=== PATIENT | male | born 1950 | race Caucasian/White ===

== ENCOUNTER 2017-07-21 22:30 | Emergency (ER) | payer OTHER ==
[~2017-07-21] VITALS: Ht 180.3 cm; Wt 88.0 kg
[~2017-07-21 22:30] MED LIST: ASPI-481 PO; CELE100C85 PO; HTN MED PO; HYDR-1666 PO; OMEP40CA3 PO; SIMVASTATIN PO
[2017-07-21 22:31] VITALS: Ht 180.3 cm; Wt 88.0 kg
[2017-07-21] MEDS ORDERED: SOD CHLORIDE 0.9% 500 ML IV STA (22:47)
--- NOTE | 2017-07-21 22:52 | ERD ---
ER Documentation Chief Complaint Date/Time DATE: 07/21/17 TIME: 22:49 Chief Complaint LLQ abd pain since this morning HPI Patient is a 67-year-old male who presents with gradual onset, intermittent, moderate left lower quadrant pain since this morning. He states that the pain is now been constant for the last 3 hours. He states that the pain began as a lower abdominal poorly localized pain, but over time is localized to the left lower quadrant. He denies pain in the testicle. He denies dysuria or hematuria. He denies vomiting or fever. He reports having 3 episodes of diarrhea that progressively more liquid and were brown to lemons in color. He denies bloody stool. He denies recent travel or sick contacts. ROS All systems reviewed and are negative except as per history of present illness. Medications Home Meds Active Scripts Hydrocodone Bit-Acetaminophen* (Vicodin*) 5-300 Tab, 1 TAB PO Q4H Y for PAIN, # 20 TAB Prov:RUBÉN MICHEL MD 07/22/17 Metronidazole* (Flagyl*) 500 Mg Tablet, 500 MG PO TID for 14 Days, TAB Prov:RUBÉN MICHEL MD 07/22/17 Ciprofloxacin Hcl* (Ciprofloxacin Hcl*) 500 Mg Tablet, 500 MG PO BID for 14 Days , TAB Prov:RUBÉN MICHEL MD 07/22/17 Reported Medications Hydrocodone Bit/Acetaminophen (Vicodin 5/500 Tablet) 1 Tab Tablet, 1 TAB PO DAILY Y 06/09/12 Aspirin (Baby Aspirin) 81 Mg Tab.chew, 81 MG PO DAILY 06/09/12 Celecoxib* (Celebrex*) 100 Mg Capsule, 100 MG PO AM 06/09/12 [Simvastatin] No Conflict Check, PO HS 06/09/12 [Htn Med] No Conflict Check, 5 MG PO HS 06/09/12 Omeprazole* (Prilosec*) 40 Mg Capsule.dr, 40 MG PO HS 06/09/12 Allergies Allergies: Coded Allergies: No Known Drug Allergies (Verified Allergy, Unknown, 07/22/17) PMhx/Soc Past medical history: Hypertension, hyperlipidemia, anxiety, GERD, Congenital heart murmur, TIA Past surgical history: Left hip replacement Social history: Occasional alcohol, denies tobacco History of Surgery: Yes ('99 FX HIP SX,19 YRS OLD HEART CATH) Anesthesia Reaction: No Hx Neurological Disorder: No Hx Respiratory Disorders: Yes (2 SPONTANEOUS PNEUMOTHORAX WHEN 19 YRS OLD, 21 YRS OLD) Hx Cardiac Disorders: Yes (HTN 2 YRS ) Hx Psychiatric Problems: No Hx Miscellaneous Medical Probl: No Hx Alcohol Use: Yes (OCCASIONAL, COUPLE TIMES/MONTH) Hx Substance Use: No Hx Tobacco Use: No (40 YRS LAST SMOKED) FmHx Family History: No coronary disease, No diabetes Physical Exam Vitals Vital Signs Date Time Temp Pulse Resp B/P Pulse Ox O2 Delivery O2 Flow Rate FiO2 07/22/17 01:27 98.1 81 20 131/78 98 Room Air 07/21/17 22:31 97.7 88 20 128/61 96 Physical Exam Const: Alert, no acute distress Head: Atraumatic Eyes: Normal Conjunctiva, No pallor, no icterus ENT: Normal External Ears, Nose and Mouth.Moist mucous membranes Neck: Full range of motion..~ No meningismus. Resp: Clear to auscultation bilaterally, No wheezes, no rales Cardio: Regular rate and rhythm, no murmurs Abd: Soft, Nondistended. Palpation of suprapubic and left upper quadrant areas causes referred pain to the left lower quadrant. There is equivocal rebound in the left lower quadrant. There is exquisite tenderness to the inguinal area. There are no skin lesions or erythema. There is no tenderness or mass to the left testicle. There is no palpable hernia. There is no CVA tenderness. Skin: No petechiae or rashes Back: No midline or flank tenderness Ext: No cyanosis, or edema Neur: Awake and alert, Cranial nerves II through XII intact bilaterally, strength and sensation full in 4 extremities. Psych: Normal Mood and Affect Result Diagram: 07/21/17225107/21/172251 Results 24 hrs Laboratory Tests Test 07/21/17 22:52 07/21/17 23:07 White Blood Count 11.110^3/ul Red Blood Count 4.2710^6/ul Hemoglobin 12.7g/dl Hematocrit 38.4% Mean Corpuscular Volume 89.9fl Mean Corpuscular Hemoglobin 29.7pg Mean Corpuscular Hemoglobin Concent 33.1g/dl Red Cell Distribution Width 12.2% Platelet Count 69208^3/UL Mean Platelet Volume 10.5fl Neutrophils % 69.8% Lymphocytes % 18.3% Monocytes % 8.9% Eosinophils % 2.1% Basophils % 0.5% Nucleated Red Blood Cells % 0.0/100WBC Neutrophils # 7.710^3/ul Lymphocytes # 2.010^3/ul Monocytes # 1.010^3/ul Eosinophils # 0.210^3/ul Basophils # 0.110^3/ul Nucleated Red Blood Cells # 0.010^3/ul Prothrombin Time 12.7Sec Prothrombin Time Ratio 1.0 INR International Normalized Ratio 0.95 Urine Color YELLOW Urine Clarity CLEAR Urine pH 6.0 Urine Specific [place] 1.028 Urine Ketones TRACEmg/dL Urine Nitrite NEGATIVEmg/dL Urine Bilirubin NEGATIVEmg/dL Urine Urobilinogen 2+mg/dL Urine Leukocyte Esterase NEGATIVELeu/ul Urine Hemoglobin NEGATIVEmg/dL Urine Glucose NEGATIVEmg/dL Urine Total Protein NEGATIVEmg/dl Sodium Level 141mmol/L Potassium Level 4.7mmol/L Chloride Level 107mmol/L Carbon Dioxide Level 27mmol/L Anion Gap 12 Blood Urea Nitrogen 27mg/dl Creatinine 1.58mg/dl Glucose Level 113mg/dl Calcium Level 8.4mg/dl Total Bilirubin 0.5mg/dl Direct Bilirubin 0.00mg/dl Indirect Bilirubin 0.5mg/dl Aspartate Amino Transf (AST/SGOT) 26IU/L Alanine Aminotransferase (ALT/SGPT) 41IU/L Alkaline Phosphatase 107IU/L Total Protein 7.1g/dl Albumin 4.0g/dl Globulin 3.10g/dl Albumin/Globulin Ratio 1.29 Bedside Urine pH (LAB) 6.5 Bedside Urine Protein (LAB) 1+ Bedside Urine Glucose (UA) Negative Bedside Urine Ketones (LAB) Trace Bedside Urine Blood Negative Bedside Urine Nitrite (LAB) Negative Bedside Urine Leukocyte Esterase (L Negative Current Medications Medications (Trade) Dose Ordered Sig/Edith Route PRN Reason Start Time Stop Time Status Last Admin Dose Admin Sodium Chloride (NS) 500 ml @ 500 mls/hr Q1H STAT IV 07/21/17 22:47 07/21/17 23:46 DC 07/21/17 22:58 Morphine Sulfate (morphine) 4 mg ONCE STAT IV 07/21/17 23:23 07/21/17 23:24 DC 07/21/17 23:29 Ciprofloxacin (Cipro) 500 mg ONCE ONCE PO 07/22/17 01:00 07/22/17 01:04 DC 07/22/17 01:25 Metronidazole (Flagyl) 500 mg ONCE ONCE PO 07/22/17 01:00 07/22/17 01:04 DC 07/22/17 01:25 Procedures/MDM MDM: Patient is a 67-year-old male who presents with acute left-sided abdominal pain for 1 day. He has no fever, but has mild leukocytosis and has tenderness on exam. A CT scan shows a focal area of inflammation and multiple diverticuli , suggestive of diverticulitis. There is no evidence of perforation or abscess. He has no features to suggest ischemic colitis. He has no nausea and is tolerating oral intake. I will treat him with a two-week course of ciprofloxacin and Flagyl, and have advised him on the need for close follow-up with his PMD and return precautions. I also notified him that he will need to discuss his CT findings with his physician and consider whether to have colonoscopy scheduled as an outpatient. He reports his last colonoscopy was 5 years ago. Additional findings on CT include a fat-containing left inguinal hernia, but no incarcerated hernia. He also has incidental finding of left intrarenal stone and cholelithiasis. He does not have symptoms related to these findings. The patient reports mild to moderate response to morphine and prior positive response to Vicodin. I will discharge him with a prescription for Vicodin for pain. Departure Diagnosis: Primary Impression: Diverticulitis Diverticulitis site: large intestine Diverticulitis bleeding: without bleeding Diverticulitis complication: without perforation or abscess Qualified Code: K57.32 - Diverticulitis of large intestine without perforation or abscess without bleeding Additional Impressions: Inguinal hernia of left side without obstruction or gangrene Cholelithiasis Cholelithiasis location: gallbladder Cholecystitis presence: without cholecystitis Biliary obstruction: without biliary obstruction Qualified Code : K80.20 - Calculus of gallbladder without cholecystitis without obstruction Condition: RUBÉN Wade MD Jul 21, 2017 22:52
[2017-07-21 23:00] LABS: URINE BLOOD (Dip) POC Negative (NEGATIVE)
[2017-07-21 23:14] LABS: BASOPHIL # 0.1 10^3/ul (0.0-0.1); BASOPHILS % 0.5 % (0.0-2.0); EOSINOPHILS # 0.2 10^3/ul (0.0-0.5); EOSINOPHILS % 2.1 % (0.0-7.0); HEMATOCRIT 38.4 % (42.0-52.0); HEMOGLOBIN 12.7 g/dl (14.0-18.0); LYMPHOCYTES % 18.3 % (15.0-51.0); MEAN CORPUSCULAR HEMOGLOBIN 29.7 pg (29.0-33.0); MEAN CORPUSCULAR HGB CONC 33.1 g/dl (32.0-37.0); MEAN CORPUSCULAR VOLUME 89.9 fl (82.0-101.0); MEAN PLATELET VOLUME 10.5 fl (7.4-10.4); MONOCYTES % 8.9 % (0.0-11.0); NEUTROPHIL # 7.7 10^3/ul (1.6-7.5); NEUTROPHILS % 69.8 % (39.0-77.0); PLATELET COUNT 181 10^3/UL (140-415); RED BLOOD COUNT 4.27 10^6/ul (4.70-6.10); RED CELL DISTRIBUTION WIDTH 12.2 % (11.5-14.5); WHITE BLOOD COUNT 11.1 10^3/ul (4.8-10.8)
[2017-07-21 23:18] LABS: ADD UMIC NO; UR ASCORBIC ACID 40 mg/dL (NEGATIVE); UR BILIRUBIN (Dip) NEGATIVE (NEGATIVE); UR BLOOD (Dip) NEGATIVE (NEGATIVE); UR CLARITY CLEAR (CLEAR); UR COLOR YELLOW (YELLOW); UR GLUCOSE (Dip) NEGATIVE (NEGATIVE); UR KETONES (Dip) TRACE mg/dL (NEGATIVE); UR LEUKOCYTE ESTERASE (Dip) NEGATIVE Leu/ul (NEGATIVE); UR NITRITE (Dip) NEGATIVE (NEGATIVE); UR SPECIFIC GRAVITY (Dip) 1.028 (1.003-1.030); UR TOTAL PROTEIN (Dip) NEGATIVE (NEGATIVE); UR UROBILINOGEN (Dip) 2+ mg/dL (NEGATIVE)
[2017-07-21 23:22] LABS: INR 0.95; PROTIME 12.7 Sec (12.2-14.2)
[2017-07-21 23:23] LABS: ALBUMIN/GLOBULIN RATIO 1.29; BILIRUBIN,INDIRECT 0.5 mg/dl (0-1.1); BILIRUBIN,TOTAL 0.5 mg/dl (0.2-1.3); CALCIUM 8.4 mg/dl (8.4-10.2); CREATININE 1.58 mg/dl (0.61-1.24); POTASSIUM 4.7 mmol/L (3.5-5.1); TOTAL PROTEIN 7.1 g/dl (6.1-8.1)
[2017-07-21] MEDS ORDERED: morphine 4 MG/ML VIAL IV STA (23:23)
--- NOTE | 2017-07-22 00:42 | RADRPT ---
PROCEDURE: CT ABDOMEN/PELVIS WITHOUT CONTRAST CLINICAL INDICATION: 67-year-old male with abdominal pain. TECHNIQUE: The study was performed utilizing a [employer] VCT 64-slice CT scanner. Direct axia l sections were obtained through the abdomen and pelvis without the use of intravenous contrast mate rial. Sagittal and coronal reformations were obtained. One or more of the following dose reduction t echniques were utilized: automated exposure control, adjustment of the mA and/or kV according to pat ient's size or use of iterative reconstruction technique. The images were reviewed on a PACS workst [employer]. CTD/vol = 13.9 mGy; Total Exam DLP = 867.7 mGy-cm. COMPARISON: None. FINDINGS: There is minimal right basilar subsegmental atelectasis. There is no evidence for significant pleur al effusion. The liver has a normal size and contour without focal areas of abnormal density. No in trahepatic nor extrahepatic biliary ductal dilatation is seen. The gallbladder contains small calcif ied stones the gallbladder neck region without significant wall thickening or pericholecystic fluid. The pancreas is without areas of abnormal attenuation. The spleen is identified and has a normal s ize without abnormal density. The adrenal glands are unremarkable. The right kidney is without abnor mal density, calculi or obstruction. There are several small left peripelvic renal cysts. There is a punctate nonobstructing mid left renal calculus. There is no evidence for hydroureteronephrosis. Th e urinary bladder contains urine. There is mild retained stool identified within the colon. Multiple diverticula seen scattered throughout the colon. There is mild focal thickening of the proximal sigmoid colon with mild surrounding inflammatory changes. Note that there is no definite diverticula within this region. There is no evidence for bowel obstruction. The appendix is visualized and is w ithout abnormal thickening or surrounding inflammatory reaction. There is no significant free fluid. The prostate is mildly prominent with small calcifications within it. The aortoiliac vessels are mi ldly calcified but without aneurysmal dilatation. There is a [id number] left inguinal hernia c ontaining fat. Degenerative changes are present throughout the spine most prominently at L4-5. There is a left hip arthroplasty present. IMPRESSION: 1. Diffuse colonic diverticulosis with mild focal thickening within the proximal sigmoid colon with surrounding inflammatory changes without definite diverticula within this region. This may represen t diverticulitis or epiploic appendagitis however an underlying mass cannot be totally excluded. 2. Cholelithiasis. 3. Punctate nonobstructing mid left renal calculus. 4. No CT evidence for appendicitis. 5. Mildly prominent prostate with calcifications. 6. Qjjg-ns-udtvaqdn left inguinal hernia containing fat. 7. Vascular calcifications. 8. Degenerative changes within the spine. 9. Left hip arthroplasty. .Devin Morrison MD, MD Date Time Electronically viewed and signed by .Devin Morrison MD, on 07/22/2017 00:42 .M/
[2017-07-22] MEDS ORDERED: metroNIDAZOLE 500 MG TAB PO ONE (01:00)
[2017-07-22] MEDS ORDERED: CIPROFLOXACIN 500 MG TAB PO ONE (01:00)
[2017-07-22 01:27] VITALS: BP 131/78; PULSE 81; RESP 20; TEMP 98.1
[2017-07-22] MEDS ORDERED: METR500T PO (01:38)
[2017-07-22] MEDS ORDERED: CIPR500T4 PO (01:38)
[2017-07-22] MEDS ORDERED: HYDR-2086 PO (01:38)
== END 2017-07-22 01:52 | disposition home or self-care (01) ==
LOC: E/R 22:30
DX: K57.32 Diverticulitis of large intestine without perforation or abscess without bleeding (principal); K40.90 Unilateral inguinal hernia, without obstruction or gangrene, not specified as recurrent; K80.20 Calculus of gallbladder without cholecystitis without obstruction; I10 Essential (primary) hypertension; Z79.82 Long term (current) use of aspirin; Z96.642 Presence of left artificial hip joint; Z87.891 Personal history of nicotine dependence
CPT/HCPCS: 36415; 74176; 80053; 81003; 85025; 85610; 96374; 99285; J2270; J7040

== ENCOUNTER 2017-09-07 10:33 | Emergency (ER) | payer OTHER ==
[~2017-09-07] VITALS: Ht 180.3 cm; Wt 81.8 kg
[~2017-09-07 10:33] MED LIST changes: +CIPR500T4 PO; +HYDR-2086 PO; +METR500T PO
[2017-09-07 10:35] VITALS: Ht 180.3 cm; Wt 81.8 kg
--- NOTE | 2017-09-07 11:10 | ERD ---
ER Documentation Chief Complaint Chief Complaint "i couldn't write" an hour ago, hands shaking more than usual. no neuro def HPI 67-year-old male, [id number] with history of hypertension, anxiety, hyperlipidemia, TIA in February 2017, tremors, diverticulitis and cholelithiasis pending elective cholecystectomy on 09/12 presents to the emergency department complaining of worsening tremors since this morning with inability to write that started approximately 10 AM. Symptoms are improving but still having difficulty writing. No headache, visual changes or any other focal weakness or numbness. No other neurologic symptoms. Denies chest pain, palpitations or shortness of breath. Abdominal pain, nausea, vomiting, diarrhea or constipation. Denies neck or back pain. No URI symptoms or cough. Fevers or chills. ROS All systems reviewed and are negative except as per history of present illness. Medications Home Meds Reported Medications Multivitamins* (Theragran*) 1 Tab Tab, 1 TAB PO DAILY, TAB 09/07/17 Aspirin* (Aspirin* Chew) 81 Mg Tab.chew, 81 MG PO DAILY, TAB.CHEW 09/07/17 Sertraline Hcl* (Sertraline Hcl*) 50 Mg Tablet, 50 MG PO DAILY, #30 TAB 09/07/17 Tadalafil (Cialis) 5 Mg Tablet, 5 MG PO DAILY Y for sexul activity, TAB 09/07/17 Bupropion Hcl* (Bupropion Hcl SR*) 150 Mg Tablet.er, 150 MG PO BID, TAB.SA 09/07/17 Simvastatin* (Zocor*) 10 Mg Tablet, 10 MG PO QHS, #30 TAB 09/07/17 Omeprazole* (Omeprazole*) 20 Mg Capsule.dr, 20 MG PO DAILY, #30 CAP 09/07/17 Olmesartan Medoxomil (Benicar) 5 Mg Tablet, 10 MG PO DAILY, #60 TAB 09/07/17 Discontinued Reported Medications Hydrocodone Bit/Acetaminophen (Vicodin 5/500 Tablet) 1 Tab Tablet, 1 TAB PO DAILY Y 06/09/12 Aspirin (Baby Aspirin) 81 Mg Tab.chew, 81 MG PO DAILY 06/09/12 Celecoxib* (Celebrex*) 100 Mg Capsule, 100 MG PO AM 06/09/12 [Simvastatin] No Conflict Check, PO HS 06/09/12 [Htn Med] No Conflict Check, 5 MG PO HS 06/09/12 Omeprazole* (Prilosec*) 40 Mg Capsule.dr, 40 MG PO HS 06/09/12 Discontinued Scripts Hydrocodone Bit-Acetaminophen* (Vicodin*) 5-300 Tab, 1 TAB PO Q4H Y for PAIN, # 20 TAB Prov:RUBÉN MICHEL MD 07/22/17 Metronidazole* (Flagyl*) 500 Mg Tablet, 500 MG PO TID for 14 Days, TAB Prov:RUBÉN MICHEL MD 07/22/17 Ciprofloxacin Hcl* (Ciprofloxacin Hcl*) 500 Mg Tablet, 500 MG PO BID for 14 Days , TAB Prov:RUBÉN MICHEL MD 07/22/17 Allergies Allergies: Coded Allergies: No Known Drug Allergies (Verified Allergy, Unknown, 07/22/17) PMhx/Soc Reviewed in chart. As per HPI. Anesthesia Reaction: No Hx Respiratory Disorders: Yes (2 SPONTANEOUS PNEUMOTHORAX WHEN 19 YRS OLD, 21 YRS OLD) Hx Psychiatric Problems: No Hx Alcohol Use: Yes Hx Substance Use: No Hx Tobacco Use: No FmHx No coronary artery disease or diabetes. Physical Exam Vitals Vital Signs Date Time Temp Pulse Resp B/P Pulse Ox O2 Delivery O2 Flow Rate FiO2 09/07/17 15:14 98.1 68 18 141/90 100 Room Air 09/07/17 11:23 98.1 71 14 157/92 99 Room Air 09/07/17 10:35 98.1 83 18 107/67 100 Physical Exam Const: Alert, anxious, moderate distress. Head: Atraumatic Eyes: Normal Conjunctiva ENT: Normal External Ears, Nose and Mouth. Neck: Full range of motion..~ No meningismus. Resp: Clear to auscultation bilaterally Cardio: Regular rate and rhythm, no murmurs Abd: Soft, non tender, non distended. Normal bowel sounds Skin: No petechiae or rashes Back: No midline or flank tenderness Ext: No cyanosis, or edema Neur: Awake and alert. CN II-XII are grossly intact. Motor strenght 5/5 in all extremities. Normal gait. Negative Romberg. No dysdiadochokinesis. Resting tremors both hands. Psych: Cooperative. Anxious but not depressed. Result Diagram: 09/07/17 1130 09/07/17 1130 Results 24 hrs Laboratory Tests Test 09/07/17 11:30 09/07/17 12:15 White Blood Count 7.610^3/ul Red Blood Count 4.4210^6/ul Hemoglobin 13.1g/dl Hematocrit 39.2% Mean Corpuscular Volume 88.7fl Mean Corpuscular Hemoglobin 29.6pg Mean Corpuscular Hemoglobin Concent 33.4g/dl Red Cell Distribution Width 11.9% Platelet Count 56246^3/UL Mean Platelet Volume 10.4fl Neutrophils % 74.4% Lymphocytes % 16.5% Monocytes % 6.5% Eosinophils % 1.8% Basophils % 0.4% Nucleated Red Blood Cells % 0.0/100WBC Neutrophils # 5.710^3/ul Lymphocytes # 1.310^3/ul Monocytes # 0.510^3/ul Eosinophils # 0.110^3/ul Basophils # 0.010^3/ul Nucleated Red Blood Cells # 0.010^3/ul Prothrombin Time 13.7Sec Prothrombin Time Ratio 1.1 INR International Normalized Ratio 1.05 Activated Partial Thromboplast Time 28.8Sec Sodium Level 139mmol/L Potassium Level 4.5mmol/L Chloride Level 103mmol/L Carbon Dioxide Level 25mmol/L Anion Gap 16 Blood Urea Nitrogen 27mg/dl Creatinine 1.74mg/dl Glucose Level 113mg/dl Calcium Level 9.0mg/dl Total Bilirubin 1.1mg/dl Direct Bilirubin 0.00mg/dl Indirect Bilirubin 1.1mg/dl Aspartate Amino Transf (AST/SGOT) 26IU/L Alanine Aminotransferase (ALT/SGPT) 44IU/L Alkaline Phosphatase 90IU/L Troponin I < 0.012ng/ml Total Protein 7.1g/dl Albumin 4.2g/dl Globulin 2.90g/dl Albumin/Globulin Ratio 1.44 Urine Color YELLOW Urine Clarity CLEAR Urine pH 6.0 Urine Specific [place] 1.018 Urine Ketones TRACEmg/dL Urine Nitrite NEGATIVEmg/dL Urine Bilirubin NEGATIVEmg/dL Urine Urobilinogen NEGATIVEmg/dL Urine Leukocyte Esterase NEGATIVELeu/ul Urine Hemoglobin NEGATIVEmg/dL Urine Glucose NEGATIVEmg/dL Urine Total Protein NEGATIVEmg/dl Urine Opiates Screen Negative Urine Barbiturates Negative Urine Amphetamines Screen Negative Urine Benzodiazepines Screen Negative Urine Cocaine Screen Negative Urine Cannabinoids Negative Current Medications Medications (Trade) Dose Ordered Sig/Edith Route PRN Reason Start Time Stop Time Status Last Admin Dose Admin Ondansetron HCl (Zofran Inj) 4 mg ER BRIDGE PRN IV NAUSEA AND/OR VOMITING 09/07/17 14:00 09/08/17 13:59 Acetaminophen (Tylenol Tab) 650 mg ER BRIDGE PRN PO MILD PAIN/FEVER 09/07/17 14:00 09/08/17 13:59 EKG: TIME: : . Sinus rhythm. Ventricular rate 68. Bundle branch block. Normal IN interval. No acute ST segment elevation or depression. No ectopy. EP Interpretation: Abnormal EKG. IMAGING: PROCEDURE: CT Brain without contrast. CLINICAL INDICATION: Neurologic deficit TECHNIQUE: A CT of the brain was performed on multidetector high-resolution CT scanner utilizing axial sections from the skull base through the vertex without contrast. One or more of the following dose reduction techniques were used: Automated exposure control, Adjustment of the mA and/or kV according to patient size, and/or use of iterative reconstruction technique. DICOM images are available. DOSE: CTDI = 44 mGy and the DLP = 720 mGy-cm. COMPARISON: None available FINDINGS: No acute intracranial hemorrhage, significant mass effect or midline shift. The martins-white differentiation is grossly preserved. Vascular calcifications. Prominence of the cortical sulci and ventricles are related to mild cerebral volume loss. No significant opacification of the visualized paranasal sinuses or mastoids. IMPRESSION: No acute intracranial hemorrhage or mass effect. Mild volume loss and intracranial atherosclerosis. RPTAT: AA .Jaden Mcguire MD, MD Date Time Electronically viewed and signed by .Jaden Mcguire MD, MD on 09/07/2017 11:51 .T/ Procedures/MDM DOCUMENTS REVIEWED: ED nurse, prior ED, prior records REEXAMINATION/REEVALUATION: Time:12:00. Writing has significantly improved but is still not back to baseline. MEDICAL DECISION MAKIN-year-old male, [id number] with history of hypertension, anxiety, hyperlipidemia, TIA in February 2017, tremors, diverticulitis and cholelithiasis pending elective cholecystectomy on 09/12 presents to the emergency department complaining of worsening tremors since this morning with inability to write that started approximately [address] of the brain is negative. MRI/MRA is pending. Case reviewed with tele-neurologist Dr. Carty. Etiology of the patient's symptoms is unclear and not definitively related to a cerebrovascular issue. Certainly minimal symptoms and no indication for thrombolytics or neuro interventional endovascular therapy. The patient was recently taken off antiplatelet therapy due to schedule elective cholecystectomy and resumption of aspirin is pending imaging studies. A supratentorial etiology is also considered. Admit to telemetry for stroke workup, further evaluation and management. Counseled patient regarding diagnostic workup, diagnosis and need for admission. CALLS/CONSULTS: Dr. Carty, tele-neurology., Recommends stroke workup. CALLS/CONSULTS: Dr Hameed. Agrees with plan for stroke workup. PATIENT CARE TRANSITIONED: Time: 13:00, Dr. Hameed. CRITICAL CARE TIME: Due to the high probability of sudden clinically significant hemodynamic and neurologic deterioration, this patient with tremors and possible TIA/CVA required multiple, frequent reevaluations of vital signs and response to therapy. Additional critical care time was spent in review of previous medical records, consultation with tele-neurology and arranging for admission and ongoing care with Dr. Hameed. TOTAL CRITICAL CARE TIME: 35 minutes not including other separately reportable procedures. Departure Diagnosis: Primary Impression: Tremor Additional Impressions: TIA (transient ischemic attack) Transient cerebral ischemia type: unspecified Qualified Code: G45.9 - Transient cerebral ischemia, unspecified type Hypertension Hypertension type: unspecified Qualified Code: I10 - Hypertension, unspecified type Condition: Serious JAY OLIVAS MD Sep 07, 2017 11:10
[2017-09-07 11:44] LABS: BASOPHILS % 0.4 % (0.0-2.0); EOSINOPHILS # 0.1 10^3/ul (0.0-0.5); EOSINOPHILS % 1.8 % (0.0-7.0); HEMATOCRIT 39.2 % (42.0-52.0); HEMOGLOBIN 13.1 g/dl (14.0-18.0); LYMPHOCYTES # 1.3 10^3/ul (0.8-2.9); LYMPHOCYTES % 16.5 % (15.0-51.0); MEAN CORPUSCULAR HEMOGLOBIN 29.6 pg (29.0-33.0); MEAN CORPUSCULAR HGB CONC 33.4 g/dl (32.0-37.0); MEAN CORPUSCULAR VOLUME 88.7 fl (82.0-101.0); MEAN PLATELET VOLUME 10.4 fl (7.4-10.4); MONOCYTE # 0.5 10^3/ul (0.3-0.9); MONOCYTES % 6.5 % (0.0-11.0); NEUTROPHIL # 5.7 10^3/ul (1.6-7.5); NEUTROPHILS % 74.4 % (39.0-77.0); PLATELET COUNT 177 10^3/UL (140-415); RED BLOOD COUNT 4.42 10^6/ul (4.70-6.10); RED CELL DISTRIBUTION WIDTH 11.9 % (11.5-14.5); WHITE BLOOD COUNT 7.6 10^3/ul (4.8-10.8)
--- NOTE | 2017-09-07 11:52 | RADRPT ---
PROCEDURE: CT Brain without contrast. CLINICAL INDICATION: Neurologic deficit TECHNIQUE: A CT of the brain was performed on multidetector high-resolution CT scanner utilizing a xial sections from the skull base through the vertex without contrast. One or more of the following dose reduction techniques were used: Automated exposure control, Adjustment of the mA and/or kV acc ording to patient size, and/or use of iterative reconstruction technique. DICOM images are available . DOSE: CTDI = 44 mGy and the DLP = 720 mGy-cm. COMPARISON: None available FINDINGS: No acute intracranial hemorrhage, significant mass effect or midline shift. The martins-white different iation is grossly preserved. Vascular calcifications. Prominence of the cortical sulci and ventricles are related to mild cerebr al volume loss. No significant opacification of the visualized paranasal sinuses or mastoids. IMPRESSION: No acute intracranial hemorrhage or mass effect. Mild volume loss and intracranial atherosclerosis. RPTAT: AA .Jaden Mcguire MD, MD Date Time Electronically viewed and signed by .Jaden Mcguire MD, on 09/07/2017 11:51 .T/
[2017-09-07 12:01] LABS: ALANINE AMINOTRANSFERASE 44 IU/L (13-69); ALBUMIN 4.2 g/dl (3.3-4.9); ALBUMIN/GLOBULIN RATIO 1.44; ALKALINE PHOSPHATASE 90 IU/L (42-121); ANION GAP 16 (8-16); ASPARTATE AMINO TRANSFERASE 26 IU/L (15-46); BILIRUBIN,INDIRECT 1.1 mg/dl (0-1.1); BILIRUBIN,TOTAL 1.1 mg/dl (0.2-1.3); BLOOD UREA NITROGEN 27 mg/dl (7-20); CARBON DIOXIDE 25 mmol/L (21-31); CHLORIDE 103 mmol/L (97-110); CREATININE 1.74 mg/dl (0.61-1.24); GLUCOSE 113 mg/dl (70-220); POTASSIUM 4.5 mmol/L (3.5-5.1); SODIUM 139 mmol/L (135-144); TOTAL PROTEIN 7.1 g/dl (6.1-8.1)
[2017-09-07 12:15] LABS: TROPONIN-I < 0.012 ng/ml (0.00-0.12)
--- NOTE | 2017-09-07 12:25 | RADRPT ---
PROCEDURE: XR Chest. CLINICAL INDICATION: Possible stroke. TECHNIQUE: Single frontal view of the chest was obtained. COMPARISON: None FINDINGS: The cardiomediastinal silhouette appears magnified. There are aortic calcifications. No focal consolidation is seen. No pleural effusion is seen. No definite pneumothorax. No acute osseous abnormality. IMPRESSION: No radiographic evidence of an acute cardiopulmonary process. RPTAT: EE Jamila Portillo Physician Date Time Electronically viewed and signed by Jamila Portillo Physician on 09/07/2017 12:25 /
[2017-09-07 12:33] LABS: ADD UMIC NO; UR ASCORBIC ACID 40 mg/dL (NEGATIVE); UR BILIRUBIN (Dip) NEGATIVE (NEGATIVE); UR BLOOD (Dip) NEGATIVE (NEGATIVE); UR CLARITY CLEAR (CLEAR); UR COLOR YELLOW (YELLOW); UR GLUCOSE (Dip) NEGATIVE (NEGATIVE); UR KETONES (Dip) TRACE mg/dL (NEGATIVE); UR LEUKOCYTE ESTERASE (Dip) NEGATIVE Leu/ul (NEGATIVE); UR NITRITE (Dip) NEGATIVE (NEGATIVE); UR SPECIFIC GRAVITY (Dip) 1.018 (1.003-1.030); UR TOTAL PROTEIN (Dip) NEGATIVE (NEGATIVE); UR UROBILINOGEN (Dip) NEGATIVE (NEGATIVE)
[2017-09-07 12:52] LABS: INR 1.05; PARTIAL THROMBOPLASTIN TIME 28.8 Sec (25.0-35.0); PROTIME 13.7 Sec (12.2-14.2); PT RATIO 1.1
[2017-09-07 13:00] LABS: BARBITURATES Negative (NEGATIVE); BENZODIAZEPINES Negative (NEGATIVE); CANNABINOIDS Negative (NEGATIVE); COCAINE Negative (NEGATIVE); OPIATES Negative (NEGATIVE)
[2017-09-07] MEDS ORDERED: OLME5TAB4 PO (13:16)
[2017-09-07] MEDS ORDERED: SIMV10TA PO (13:17)
[2017-09-07] MEDS ORDERED: OMEP20CA16 PO (13:17)
[2017-09-07] MEDS ORDERED: BUPR150T18 PO (13:18)
[2017-09-07] MEDS ORDERED: TADA5TAB2 PO (13:26)
[2017-09-07] MEDS ORDERED: ASPI81TA3 PO (13:27)
[2017-09-07] MEDS ORDERED: SERT50TA6 PO (13:27)
[2017-09-07] MEDS ORDERED: MULTI PO (13:31)
[2017-09-07] MEDS ORDERED: ACETAMINOPHEN 325 MG TAB PO PRN (14:00)
[2017-09-07] MEDS ORDERED: ONDANSETRON 4 MG INJ IV PRN (14:00)
[2017-09-07 15:14] VITALS: BP 141/90; PULSE 68; RESP 18; TEMP 98.1
--- NOTE | 2017-09-07 17:21 | RADRPT ---
PROCEDURE: MRI Brain without contrast. CLINICAL INDICATION: Worsening tremors. TECHNIQUE: MRI of the brain was performed with the following sequences obtained: Sagittal, coronal and axial T1-weighted, axial T2-weighted, axial FLAIR, axial diffusion weighted (with ADC map), and coronal GRE. COMPARISON: CT head 09/08/2017 FINDINGS: The diffusion sequence is normal with no evidence for acute infarct. No hemorrhage, mass effect or mass lesion is present. The extraaxial spaces are clear of collections. The ventricular system and sulci are normal for the patient's provided age of 67 years and associated appropriate expected tis [place] loss. No signal alteration is present within the brainstem or cerebellum. The fourth ventricle is midline and the craniocervical junction lesion is intact. The area of the sella is normal. The bony calvarium and skull base are intact. The visualized paranasal sinuses and mastoid air cell s are clear. Physiologic flow voids within the internal carotid and vertebral arteries are maintain ed. RPTAT:HJJR IMPRESSION: Overall unremarkable noncontrast MRI of the brain for the patient's age. There are no findings to he lp explain the patient's provided history. Physician Orville Date Time Electronically viewed and signed by Physician Orville on 09/07/2017 17:20 /
--- NOTE | 2017-09-07 17:22 | RADRPT ---
PROCEDURE: MRA brain without contrast CLINICAL INDICATION: Worsening tremors TECHNIQUE: 3-D [id number] intracranial MRA without contrast was performed on a GE Signa Excite 3.0T scanner. Rotational MIP images were reformatted. The source images were also reviewed. COMPARISON: MRI brain 09/07/2017 FINDINGS: The bilateral internal carotid arteries, and the bilateral middle and anterior cerebral arteries are patent and normal in caliber. The bilateral vertebral arteries, basilar artery, as well as the dakota ateral posterior cerebral arteries are patent and normal in caliber. No aneurysm or arteriovenous m alformation is observed. RPTAT:HJJR IMPRESSION: Unremarkable MRA of the brain. Physician Orville Date Time Electronically viewed and signed by Physician Orville on 09/07/2017 17:22 /
--- NOTE | 2017-09-07 17:25 | CONS ---
Date/Time of Note Date/Time of Note DATE: 09/07/17 TIME: 17:17 Assessment/Plan Assessment/Plan Additional Assessment/Plan 67-year-old male with 1. Upper extremity tremors especially when intentionally pointing at something , decrease fine movement of his right hand but able to hold on objects and eat. Appreciate tele-neurology evaluation, unclear if this is a cerebrovascular disease, recommending MRI/MRA of the brain and if no findings of cerebrovascular disease no need to resume aspirin at this point as the patient is due to go to surgery for elective cholecystectomy next week Patient is currently fairly asymptomatic, he is ambulating in the emergency department, he is able to eat with his right hand and mental status is stable. Therefore he is agreeable to go home since MRI/MRA of the head is negative. He did report some neck pain, therefore I have asked [facility] to arrange for MRI of the cervical spine with and without contrast to be done at the latest on 09/09 with results to be sent to the patient primary care physician. I will also put a referral to outpatient neurology regarding his tremors and they can also follow-up on the MRI of the cervical spine. Patient will be discharged home from the emergency department. He is to remain off aspirin for now in anticipation of his elective cholecystectomy next week. Consultation Date/Type/Reason Admit Date/Time Date of Consultation: Sep 07, 2017 Type of Consultation: Internal medicine Reason for Consultation Tremors Hx of Present Illness Chief complaint: Tremors predominantly right upper extremity History of presenting illness: Briefly this is a 67-year-old male with apparently previous diagnosis of TIA, has been off aspirin so far in preparation of cholecystectomy to be done next week and this morning around 10 AM had acute onset of upper extremity tremors, weakness of his right upper extremity while riding therefore with weakness of fine movements but otherwise 5 out of 5 for gross strength. His tremor seems to be intentional as the patient point in front of him the tremors are present a little more present on his left upper extremity. He was evaluated by tele-neurology it is unclear if this is cerebrovascular disease related at all versus peripheral neuropathy versus essential tremors. CAT scan of the head is negative. MRI/MRA of the brain have been done and negative at this point, patient has no other acute findings so far, per tele-neurology not recommending to give aspirin unless there are findings on MRIs indicating cerebrovascular disease. The plan therefore is to discharge the patient home. I have asked his insurance to arrange for C-spine MRI with and without contrast to be done as soon as the in the next 48 hours with results sent to the primary care physician in case the patient does have cervical spine disease. Patient is agreeable with that plan, he understands to return to the ER if there is any further acute neurological symptoms he experienced at home. Constitutional: no complaints Eyes: no complaints ENT: no complaints Cardiovascular: no complaints Gastrointestinal: no complaints Genitourinary: no complaints Musculoskeletal: no complaints Skin: no complaints Neurologic: other (Tremors of upper extremity more pronounced on the left, decreased fine movement of his right hand) Endocrine: no complaints Lymphatic: no complaints Psychological: no complaints Immunologic: no complaints Past Medical History Gallstone disease awaiting cholecystectomy elective next week History of TIA of unclear diagnosis Family History Significant Family History: no pertinent family hx Social History Alcohol Use: none Smoking Status: Never smoker Drug Use: none Exam/Review of Systems Vital Signs Vitals Vital Signs Date Time Temp Pulse Resp B/P Pulse Ox O2 Delivery O2 Flow Rate FiO2 09/07/17 15:14 98.1 68 18 141/90 100 Room Air Exam Constitutional: alert, oriented, well developed Respiratory: clear to auscultation, normal air movement Cardiovascular: nl pulses, regular rate and rhythm Gastrointestinal: non-tender, soft Musculoskeletal: nl extremities to inspection, nl gait and stance Extremities: normal pulses Neurological: SOFTWARE RELIABILITY ENGINEER II-XII intact, nl mental status, nl speech, nl strength, other (Tremors noted of his hands went intentionally pointing, fine movement slightly decreased of the right hand.) Results Result Diagram: 09/07/17 1130 09/07/17 1130 Results 24 hrs Laboratory Tests Test 09/07/17 11:30 09/07/17 12:15 White Blood Count 7.6 # Red Blood Count 4.42 L Hemoglobin 13.1 L Hematocrit 39.2 L Mean Corpuscular Volume 88.7 Mean Corpuscular Hemoglobin 29.6 Mean Corpuscular Hemoglobin Concent 33.4 Red Cell Distribution Width 11.9 Platelet Count 177 Mean Platelet Volume 10.4 Neutrophils % 74.4 Lymphocytes % 16.5 Monocytes % 6.5 Eosinophils % 1.8 Basophils % 0.4 Nucleated Red Blood Cells % 0.0 Neutrophils # 5.7 Lymphocytes # 1.3 Monocytes # 0.5 Eosinophils # 0.1 Basophils # 0.0 Nucleated Red Blood Cells # 0.0 Prothrombin Time 13.7 Prothrombin Time Ratio 1.1 INR International Normalized Ratio 1.05 Activated Partial Thromboplast Time 28.8 Sodium Level 139 Potassium Level 4.5 Chloride Level 103 Carbon Dioxide Level 25 Anion Gap 16 Blood Urea Nitrogen 27 H Creatinine 1.74 H Glucose Level 113 Calcium Level 9.0 Total Bilirubin 1.1 Direct Bilirubin 0.00 Indirect Bilirubin 1.1 Aspartate Amino Transf (AST/SGOT) 26 Alanine Aminotransferase (ALT/SGPT) 44 Alkaline Phosphatase 90 Troponin I < 0.012 Total Protein 7.1 Albumin 4.2 Globulin 2.90 Albumin/Globulin Ratio 1.44 Urine Color YELLOW Urine Clarity CLEAR Urine pH 6.0 Urine Specific Sherrard 1.018 Urine Ketones TRACE A Urine Nitrite NEGATIVE Urine Bilirubin NEGATIVE Urine Urobilinogen NEGATIVE Urine Leukocyte Esterase NEGATIVE Urine Hemoglobin NEGATIVE Urine Glucose NEGATIVE Urine Total Protein NEGATIVE Urine Opiates Screen Negative Urine Barbiturates Negative Urine Amphetamines Screen Negative Urine Benzodiazepines Screen Negative Urine Cocaine Screen Negative Urine Cannabinoids Negative Imaging Free Text/Dictation PROCEDURE: MRI Brain without contrast. CLINICAL INDICATION: Worsening tremors. TECHNIQUE: MRI of the brain was performed with the following sequences obtained : Sagittal, coronal and axial T1-weighted, axial T2-weighted, axial FLAIR, axial diffusion weighted (with ADC map), and coronal GRE. COMPARISON: CT head 09/08/2017 FINDINGS: The diffusion sequence is normal with no evidence for acute infarct. No hemorrhage, mass effect or mass lesion is present. The extraaxial spaces are clear of collections. The ventricular system and sulci are normal for the patient's provided age of 67 years and associated appropriate expected tissue loss. No signal alteration is present within the brainstem or cerebellum. The fourth ventricle is midline and the craniocervical junction lesion is intact. The area of the sella is normal. The bony calvarium and skull base are intact. The visualized paranasal sinuses and mastoid air cells are clear. Physiologic flow voids within the internal carotid and vertebral arteries are maintained. RPTAT:KAROLINEJR IMPRESSION: Overall unremarkable noncontrast MRI of the brain for the patient's age. There are no findings to help explain the patient's provided history. Physician Orvilel Date Time Electronically viewed and signed by Physician Orville on 09/07/2017 17:20 PROCEDURE: MRA brain without contrast CLINICAL INDICATION: Worsening tremors TECHNIQUE: 3-D [id number] intracranial MRA without contrast was performed on a GE Signa Excite 3.0T scanner. Rotational MIP images were reformatted. The source images were also reviewed. COMPARISON: MRI brain 09/07/2017 FINDINGS: The bilateral internal carotid arteries, and the bilateral middle and anterior cerebral arteries are patent and normal in caliber. The bilateral vertebral arteries, basilar artery, as well as the bilateral posterior cerebral arteries are patent and normal in caliber. No aneurysm or arteriovenous malformation is observed. RPTAT:HJJR IMPRESSION: Unremarkable MRA of the brain. Physician Orville Date Time Electronically viewed and signed by Physician Orville on 09/07/2017 17:22 Procedures Procedures PROCEDURE: CT Brain without contrast. CLINICAL INDICATION: Neurologic deficit TECHNIQUE: A CT of the brain was performed on multidetector high-resolution CT scanner utilizing axial sections from the skull base through the vertex without contrast. One or more of the following dose reduction techniques were used: Automated exposure control, Adjustment of the mA and/or kV according to patient size, and/or use of iterative reconstruction technique. DICOM images are available. DOSE: CTDI = 44 mGy and the DLP = 720 mGy-cm. COMPARISON: None available FINDINGS: No acute intracranial hemorrhage, significant mass effect or midline shift. The martins-white differentiation is grossly preserved. Vascular calcifications. Prominence of the cortical sulci and ventricles are related to mild cerebral volume loss. No significant opacification of the visualized paranasal sinuses or mastoids. IMPRESSION: No acute intracranial hemorrhage or mass effect. Mild volume loss and intracranial atherosclerosis. ERICA CRUZ Sep 07, 2017 17:25
--- NOTE | 2017-09-07 17:43 | QN ---
Documentation Comment Patient had an MRI done while in the emergency department. The patient had a negative MRI for stroke and Dr. Hameed has seen the patient and wants to discharge the patient at this time. The patient will be discharged and Dr. Hameed has arranged outpatient follow-up. The patient can return for any worsening symptoms. LIBBY STEVENS MD Sep 07, 2017 17:43
== END 2017-09-07 18:16 | disposition home or self-care (01) ==
LOC: E/R 10:33
DX: G45.9 Transient cerebral ischemic attack, unspecified (principal); I10 Essential (primary) hypertension; Z79.82 Long term (current) use of aspirin
CPT/HCPCS: 36415; 70450; 70544; 70551; 71010; 80053; 80307; 81003; 84484; 85025; 85610; 85730; 93005

== ENCOUNTER 2017-09-12 08:24 | Day surgery (SDC) | payer OTHER ==
[~2017-09-12] VITALS: Ht 180.3 cm; Wt 80.3 kg
[2017-09-12] VITALS (11 sets, daily range): BP systolic 123–160; BP diastolic 68–84; PULSE 71–85; RESP 10–19; Ht 180.3 cm; Wt 80.3 kg
[~2017-09-12 08:24] MED LIST changes: -ASPI-481 PO; +ASPI81TA3 PO; +BUPR150T18 PO; +CEFAZOLIN 1 GM INJ ONE; +CEFAZOLIN 2 GM/50 ML (PMX) 50 ML IVPB SCH; -CELE100C85 PO; -CIPR500T4 PO; -HTN MED PO; -HYDR-1666 PO; -HYDR-2086 PO; +LIDOCAINE 2% (SDV) 5 ML INJ ONE; -METR500T PO; +MULTI PO; +OLME5TAB4 PO; +OMEP20CA16 PO; -OMEP40CA3 PO; +SERT50TA6 PO; +SIMV10TA PO; -SIMVASTATIN PO; +SOD CHLORIDE 0.9% 1,000 ML IV SCH; +TADA5TAB2 PO
[2017-09-12] MEDS ORDERED: OMEP40CA6 PO (08:57)
[2017-09-12] MEDS ORDERED: BUPIVACAINE 0.25% (MPF) 30 ML INJ ONE (10:07)
[2017-09-12] MEDS ORDERED: PROPOFOL 20 ML ONE (10:14)
[2017-09-12] MEDS ORDERED: ROCURONIUM 50 MG INJ ONE (10:14)
[2017-09-12] MEDS ORDERED: FENTAnyl 50 MCG/ML VIAL IV PRN ×3 (10:30)
[2017-09-12] MEDS ORDERED: KETOROLAC 30 MG INJ IV PRN (10:30)
[2017-09-12] MEDS ORDERED: METOCLOPRAMIDE 10 MG INJ IV PRN (10:30)
[2017-09-12] MEDS ORDERED: MEPERIDINE 25 MG INJ IV PRN (10:30)
[2017-09-12] MEDS ORDERED: EPHEDrine SULFATE 50 MG/5 ML SYG IV PRN (10:30)
[2017-09-12] MEDS ORDERED: OXYCODONE/ACETAMINOPHEN (5/325) TAB PO PRN ×2 (10:30)
[2017-09-12] MEDS ORDERED: ONDANSETRON 4 MG INJ IV PRN (10:30)
[2017-09-12] MEDS ORDERED: LABETALOL HCL 20MG INJ IV PRN (10:30)
[2017-09-12] MEDS ORDERED: HYDROmorphONE (0.2 MG/ML) 10ML SYG IV PRN ×3 (10:30)
[2017-09-12] MEDS ORDERED: hydrALAzine 20 MG INJ IV PRN (10:30)
[2017-09-12] MEDS ORDERED: DIPHENHYDRAMINE 50 MG INJ IV PRN (10:30)
[2017-09-12] MEDS ORDERED: ONDANSETRON 4 MG INJ ONE (11:15)
[2017-09-12] MEDS ORDERED: DEXAMETHASONE 4 MG/ML 1 ML INJ ONE (11:15)
[2017-09-12] MEDS ORDERED: GLYCOPYRROLATE 0.4 MG INJ ONE (11:23)
[2017-09-12] MEDS ORDERED: NEOSTIGMINE 3 MG/3 ML SYRINGE ONE (11:23)
--- NOTE | 2017-09-12 11:36 | OPR ---
Date/Time of Note Date/Time of Note DATE: 09/12/17 TIME: 11:32 Operative Report Procedure Date: Sep 12, 2017 Preoperative Diagnosis symptomatic gallstones Postoperative Diagnosis same Operation/Procedure Performed 1. laparoscopic cholecystectomy 2. therapeutic injection of subcutaneous local anesthesia Surgeon see signature line Relay Checker haley dunn Anesthesia Type: general Estimated Blood Loss: minimal Transfusion none Specimen gallbladder Grafts/Implants none Complications none Pt Condition Post Procedure: stable Indications This is a 67-year-old male with symptoms and gallstones. He requests surgical excision of his gallbladder. Risks alternatives benefits and percent were discussed the patient. Patient's best understanding consents to the operation. Procedure Description Patient taken to the OR and prepped and draped in usual sterile fashion. Surgical timeout was performed. IV antibiotics were given. Infraumbilical transverse incision is made with a 15 blade. Dissection Carrs guidance the fascia. The fascia was grasped with Almita's and divided with curved Guardado scissors. 0 Vicryl U stitch was placed into the fascia. Balloon Ayoub trocar is introduced. Pneumoperitoneum is established. Midepigastric 12 mm optical trocar was placed under direct visualization right upper quadrant upper flank 5 mm optical trochars were placed under direct visualization. Upon initial inspection there is some adhesions to the gallbladder. These were taken down with cautery. The gallbladder was grasped and retracted in a lateral and our direction. This allowed mobilization of the gallbladder. Lateral dissection was initiated. This allowed careful dissection of the cystic duct and cystic artery. The cystic duct was divided with 3 clips proximal and distally there is thickened tissue and this was divided with the 35 mm echelon vascular stapler. The cystic artery was divided with 3 clips proximal and clip distal. The gallbladder was taken off the gallbladder bed. There is good hemostasis the gallbladder was retrieved using Endo Catch bag. Ports removed under direct visualization 0 Vicryl U stitch was tied down. Skin was closed using skin belia. Therapeutic subcutaneous local anesthesia was injected throughout the incision site. Dressings were applied. Ray VEGAS Sep 12, 2017 11:36
[2017-09-12] MEDS ORDERED: HYDROCODONE/APAP (5/325) TAB PO ONE (12:00)
== END 2017-09-12 14:30 | disposition home or self-care (01) ==
LOC: SDS 08:24
PROVIDERS: ATTEND Surgery
DX: K80.10 Calculus of gallbladder with chronic cholecystitis without obstruction (principal); I10 Essential (primary) hypertension; E78.5 Hyperlipidemia, unspecified; J44.9 Chronic obstructive pulmonary disease, unspecified; K21.9 Gastro-esophageal reflux disease without esophagitis
CPT/HCPCS: 47562; J0690; J1100; J1170; J2175; J2405; J2765; J3010; 88304; J2710